=== PATIENT | male | born 1990 ===

== ENCOUNTER 2016-12-21 19:33 | Emergency (ER) | payer BC ==
--- NOTE | 2016-12-21 21:58 | ED ORDER SUMMARY ---
..... Patient: JULIA DECKER OrderSheet [facility] VisitID: [id number] [place] [address] 26y, M Registration Date/Time: 12/21/2016 ORDER SHEET Weight: 86.1 kg (stated) Allergies: No Known Drug Allergy GENERAL ORDERS: Splint (Finger) (Left) (Small) (Aluminum Foam) (21:53 12/21/2016 HBivens A.R.N.P.) (Ack 21:53 CHernandez R.N.) (22:56 DDean R.N.) Suture Set-up: (21:53 12/21/2016 HBivens A.R.N.P.) (Ack 21:53 CHernandez R.N.) (22:56 DDean R.N.) Dress Wounds (21:53 12/21/2016 HBivens A.R.N.P.) (Ack 21:53 CHernandez R.N.) (22:56 DDean R.N.) MEDICATION ORDERS: Lidocaine Injection 1% plain (NOW) (21:52 12/21/2016 HBivens A.R.N.P.) (Ack 21:53 CHernandez R.N.) (22:58 DDean R.N.) Bupivacaine Injection 0.5 % (soln) (NOW) (21:52 12/21/2016 HBivens A.R.N.P.) (Ack 21:53 CHernandez R.N.) (22:58 DDean R.N.) IV FLUIDS: ORDER SHEET NOTES: [Electronically signed by Tiffanie German.R.N.P. (22:30 12/21/2016)] [Electronically signed by Ami Watters R.N. (22:59 12/21/2016)] [Electronically locked/signed by Ami Watters R.N. (22:59 12/21/2016)]
--- NOTE | 2016-12-21 21:58 | ED ORDER SUMMARY ---
..... Patient: JULIA DECKER OrderSheet [facility] VisitID: [id number] [place] [address] 26y, M Registration Date/Time: 12/21/2016 ORDER SHEET Weight: 86.1 kg (stated) Allergies: No Known Drug Allergy GENERAL ORDERS: Splint (Finger) (Left) (Small) (Aluminum Foam) (21:53 12/21/2016 HBivens A.R.N.P.) (Ack 21:53 CHernandez R.N.) (22:56 DDean R.N.) Suture Set-up: (21:53 12/21/2016 HBivens A.R.N.P.) (Ack 21:53 CHernandez R.N.) (22:56 DDean R.N.) Dress Wounds (21:53 12/21/2016 HBivens A.R.N.P.) (Ack 21:53 CHernandez R.N.) (22:56 DDean R.N.) MEDICATION ORDERS: Lidocaine Injection 1% plain (NOW) (21:52 12/21/2016 HBivens A.R.N.P.) (Ack 21:53 CHernandez R.N.) (22:58 DDean R.N.) Bupivacaine Injection 0.5 % (soln) (NOW) (21:52 12/21/2016 HBivens A.R.N.P.) (Ack 21:53 CHernandez R.N.) (22:58 DDean R.N.) IV FLUIDS: ORDER SHEET NOTES: [Electronically signed by Tiffanie German.R.N.P. (22:30 12/21/2016)] [Electronically signed by Ami Watters R.N. (22:59 12/21/2016)] [Electronically locked/signed by Ami Watters R.N. (22:59 12/21/2016)]
--- NOTE | 2016-12-21 21:58 | ED NURSING NOTES ---
Clinical Report - Nurses [facility] [place] [address] 12/21/2016 19:36 Patient: JULIA DECKER TRIAGE Triage time 20:28. Acuity: LEVEL 4. Chief Complaint: Location of symptoms- left 5th finger (laceration). --20:33 Hussein Matta R.N. 20:28 12/21/16. BP: 129/82. HR: 102. RR: 16. O2 saturation: 100%. Temp: 98.8 F. Pain level now: 10/10. --20:33 Hussein Matta R.N. Weight: 86.1 kg stated. Height/Length: 69 inches Per Patient. BMI: 28.1. --20:32 Hussein Matta R.N. Medications None. --20:30 Hussein Matta R.N. Medication/allergy information source: the patient. --20:33 Hussein Matta R.N. Allergies No Known Drug Allergy. --20:30 Hussein Matta R.N. History Arrived by private vehicle. Historian: patient. Accompanied by family. ( Was cutting a plastic material with a knife when it slipped and cut his left 5th digit, controlled bleeding.). Injury occurred. This occurred just prior to arrival. Treatment CUSTOMER ENGAGEMENT MANAGER: Performed wound care. PAST MEDICAL HX: Tetanus status: up-to-date. SOCIAL HX: Current some days light tobacco smoker (cigarette)- less than 1/2 a pack per day. Alcohol use; consumes beer occasionally. History of drug use: marijuana. (1 months ago). --20:33 Hussein Matta R.N. PROBLEMS: Laceration. Head Injury. Contusion. Tetanus Status. --20:31 Hussein Matta R.N. Interventions ID band on patient. To room. --20:33 Hussein Matta R.N. PHYSICAL ASSESSMENT Ambulatory to room. GENERAL / NEURO / PSYCH: Oriented X 4. Alert. Appears in no acute distress. EXTREMITIES: Extremities exhibit normal ROM. Neuro-vascular status intact to the extremity. No upper extremity edema. Left little finger: subcutaneous laceration with controlled bleeding. Limited movement secondary to pain. SKIN: Skin intact. Skin is warm and dry. --20:34 Hussein Matta R.N. NURSING PROGRESS NOTES Neuro-vascular extremity check. Patient identifiers checked. Call light placed in reach. Side rails up x 1. Bed placed in lowest position. Brakes of bed on. Patient ready for evaluation- ED physician and WATER POLLUTION SCIENTIST notified. --20:34 Hussein Matta R.N. Reassessment after wound repair. He is calm. Overall patient status is improved- he states feels better. GENERAL / NEURO / PSYCH: Alert. Oriented X 4. RESPIRATORY: No respiratory distress. CVS: Capillary refill less than 2 seconds. EXTREMITIES: Neuro-vascular status intact to the extremity. SKIN: Skin is warm and dry. --21:51 Hussein Matta R.N. Applied dressing, following the application of antibiotic ointment (bacitracin). Secured with tube gauze (2215). Aluminum-foam finger splint applied to left little finger (2220). --22:24 Armida Live 22:10. WOUND REPAIR: Wound repair performed by BELA. Assisted by [employer] tech. The wound is located on the left little finger. The wound is linear. Preparation: suture tray set-up with 1% lidocaine. Wound cleansed per WATER POLLUTION SCIENTIST with sterile saline and irrigated per WATER POLLUTION SCIENTIST with sterile saline using a syringe. Procedure: wound repaired with sutures (1 suture packet used). Post-procedure: he was stable, bleeding controlled, neuro-vascular status intact distal to wound and dressing applied. Total time of assist / procedure: 15 minutes. --22:54 Ami Watters R.N. 21:50 12/21/2016 lidocaine * Subcutaneous 1% to ERNP for suture repair --22:58 Ami Watters R.N. 21:50 12/21/2016 Bupivacaine Injection Injectable 0.5 % given. (to EDNP for suture repair). --22:58 Aim Watters R.N. DISPOSITION / DISCHARGE 22:05. Condition at departure: stable. No learning barriers present. Discharge instructions provided and reviewed with the patient. Reviewed referral to an orthopedic surgeon. Patient verbalized understanding. Written instructions provided in Kazakh. The patient was discharged home and accompanied by newspaper reporter. He left the Emergency Department ambulatory and via private vehicle. Mine Supervisor driving. --22:56 Ami Watters R.N. 22:05 12/21/16. BP: 118/70. HR: 82. RR: 16. O2 saturation: 100%. Temp: deferred. Pain level now: 0/10. --22:56 Ami Watters R.N. Locked/Released at 12/21/2016 22:59 by Ami Watters R.N.
--- NOTE | 2016-12-21 21:58 | ED NURSING NOTES ---
Clinical Report - Nurses [facility] [place] [address] 12/21/2016 19:36 Patient: JULIA DECKER TRIAGE Triage time 20:28. Acuity: LEVEL 4. Chief Complaint: Location of symptoms- left 5th finger (laceration). --20:33 Hussein Matta R.N. 20:28 12/21/16. BP: 129/82. HR: 102. RR: 16. O2 saturation: 100%. Temp: 98.8 F. Pain level now: 10/10. --20:33 Hussein Matta R.N. Weight: 86.1 kg stated. Height/Length: 69 inches Per Patient. BMI: 28.1. --20:32 Hussein Matta R.N. Medications None. --20:30 Hussein Matta R.N. Medication/allergy information source: the patient. --20:33 Hussein Matta R.N. Allergies No Known Drug Allergy. --20:30 Hussein Matta R.N. History Arrived by private vehicle. Historian: patient. Accompanied by family. ( Was cutting a plastic material with a knife when it slipped and cut his left 5th digit, controlled bleeding.). Injury occurred. This occurred just prior to arrival. Treatment NUCLEAR SUPERVISING OPERATOR: Performed wound care. PAST MEDICAL HX: Tetanus status: up-to-date. SOCIAL HX: Current some days light tobacco smoker (cigarette)- less than 1/2 a pack per day. Alcohol use; consumes beer occasionally. History of drug use: marijuana. (1 months ago). --20:33 Hussein Matta R.N. PROBLEMS: Laceration. Head Injury. Contusion. Tetanus Status. --20:31 Hussein Matta R.N. Interventions ID band on patient. To room. --20:33 Hussein Matta R.N. PHYSICAL ASSESSMENT Ambulatory to room. GENERAL / NEURO / PSYCH: Oriented X 4. Alert. Appears in no acute distress. EXTREMITIES: Extremities exhibit normal ROM. Neuro-vascular status intact to the extremity. No upper extremity edema. Left little finger: subcutaneous laceration with controlled bleeding. Limited movement secondary to pain. SKIN: Skin intact. Skin is warm and dry. --20:34 Hussein Matta R.N. NURSING PROGRESS NOTES Neuro-vascular extremity check. Patient identifiers checked. Call light placed in reach. Side rails up x 1. Bed placed in lowest position. Brakes of bed on. Patient ready for evaluation- ED physician and AUTOMOTIVE FINANCE MANAGER notified. --20:34 Hussein Matta R.N. Reassessment after wound repair. He is calm. Overall patient status is improved- he states feels better. GENERAL / NEURO / PSYCH: Alert. Oriented X 4. RESPIRATORY: No respiratory distress. CVS: Capillary refill less than 2 seconds. EXTREMITIES: Neuro-vascular status intact to the extremity. SKIN: Skin is warm and dry. --21:51 Hussein Matta R.N. Applied dressing, following the application of antibiotic ointment (bacitracin). Secured with tube gauze (2215). Aluminum-foam finger splint applied to left little finger (2220). --22:24 Armida Live 22:10. WOUND REPAIR: Wound repair performed by BELA. Assisted by [employer] tech. The wound is located on the left little finger. The wound is linear. Preparation: suture tray set-up with 1% lidocaine. Wound cleansed per AUTOMOTIVE FINANCE MANAGER with sterile saline and irrigated per AUTOMOTIVE FINANCE MANAGER with sterile saline using a syringe. Procedure: wound repaired with sutures (1 suture packet used). Post-procedure: he was stable, bleeding controlled, neuro-vascular status intact distal to wound and dressing applied. Total time of assist / procedure: 15 minutes. --22:54 Ami Watters R.N. 21:50 12/21/2016 lidocaine * Subcutaneous 1% to ERNP for suture repair --22:58 Ami Watters R.N. 21:50 12/21/2016 Bupivacaine Injection Injectable 0.5 % given. (to EDNP for suture repair). --22:58 Ami Watters R.N. DISPOSITION / DISCHARGE 22:05. Condition at departure: stable. No learning barriers present. Discharge instructions provided and reviewed with the patient. Reviewed referral to an orthopedic surgeon. Patient verbalized understanding. Written instructions provided in Kiswahili. The patient was discharged home and accompanied by participant administrator. He left the Emergency Department ambulatory and via private vehicle. Visual Lead driving. --22:56 Ami Watters R.N. 22:05 12/21/16. BP: 118/70. HR: 82. RR: 16. O2 saturation: 100%. Temp: deferred. Pain level now: 0/10. --22:56 Ami Watters R.N. Locked/Released at 12/21/2016 22:59 by Ami Watters R.N.
--- NOTE | 2016-12-21 21:58 | ED CLINICAL REPORT ---
Clinical Report - Physicians/Mid Levels [facility] [address] [place] [address] 12/21/2016 19:36 Patient: JULIA DECKER Time Seen: 0; initial patient contact, initial documentation, patient care assumed. Arrived- By private vehicle. Historian- patient. HISTORY OF PRESENT ILLNESS Chief Complaint: Injury to the left 5th (little) finger. The injury happened just prior to arrival. The patient sustained a laceration from a knife. Occurred at home. Patient is experiencing severe pain. Patient denies injury to the head or neck. No other injury. REVIEW OF SYSTEMS The patient sustained a laceration. No swelling, tingling, numbness, weakness or foreign body. All systems otherwise negative, except as recorded above. PAST HISTORY See nurses notes. PROBLEMS: Laceration. Head Injury. Contusion. Tetanus Status. --20:31 Hussein Matta RDoc. The patient's dominant hand is the right. Tetanus immunization status is up-to-date. SOCIAL HISTORY Light tobacco smoker. Occasional alcohol use. History of occasional drug use: marijuana. No recent travel. Is a local resident. FAMILY HISTORY No significant family medical history. ADDITIONAL NOTES The nursing notes have been reviewed with agreement regarding the chief complaint, HPI, ROS, PMH and patient medications and allergies. PHYSICAL EXAM Vital Signs: 12/21/2016 20:28 BP: 129/82. HR: 102. RR: 16. O2 saturation: 100%. Temp: 98.8 F. Pain level now: 5/10. Have been reviewed as abnormal and appear to be correct. Blood pressure normal. Tachycardic. Respiratory rate normal. Temperature normal. Oxygen saturation normal. Appearance: Alert. Oriented X3. Anxious. No acute distress. Head: Head atraumatic. Eyes: Pupils equal, round and reactive to light. Eyes normal inspection. Respiratory: No respiratory distress. Skin: Skin warm and dry. Skin intact. Extremities: Hand injury present. Left little finger: severe tenderness and subcutaneous 2.0 cm laceration of the volar aspect, PIP joint and middle phalanx- SEE LACERATION PROCEDURE NOTE #1; limited movement (diminished flexion). Neurovascular intact distally. (pt unable to flex finger). No erythema, swelling, abrasion, ecchymosis or puncture wound. No foreign body or deformity. No subungual hematoma or amputation present. No wrist injury. Hand and wrist exam otherwise negative. Extremities otherwise negative. Neuro, Vascular and Tendons: Vascular status intact. No pulse deficit present. Capillary refill not prolonged. Sensation intact. Motor deficit present. Tendon deficit present. Possible functional tendon deficit to flexor tendon left little finger. No tendon injury seen. No sensory deficit or weakness. Neuro: Oriented X 3. No motor deficit. No sensory deficit. Note: isolated injury to finger. PROGRESS AND PROCEDURES Laceration Repair: Location: left little finger. Length: 2 cm. Complexity: simple (local anesthesia used and sutured). Wound depth/shape- subcutaneous, linear and irregular and involving fascia. Wound is clean. No contamination, foreign body or contused tissue present. No tissue loss. Neuro/vascular/tendon status: motor deficit present distally. Tendon injury present. (? flexor tendon injury, unable to flex finger). No sensory deficit or vascular deficit distally. No ligament injury or tendon deficit or laceration. Tendon not examined. Anesthesia provided by digital block using 1% lidocaine and 0.50% Marcaine (5 mL). Prepped with Betadine. Wound explored, cleansed, irrigated and examined to the base in bloodless field with normal saline. No foreign material removed. Closure of skin: interrupted 3-0 nylon (4 sutures). Post-procedure: he is stable and there are no complications. Bleeding is controlled and neuro-vascular status is intact distal to the wound. Course of Care: concerns over possible flexor tendon injury voiced more than once, pt agreed to f/u with hand specialist. Patient counseled in person regarding the patient's stable condition and diagnosis. Differential Diagnosis: Other possible considerations: finger lac, tendon injury, fb, skin avulsion. Above considerations are based on history and physical exam. Differential diagnosis was discussed with patient. Disposition: Discharged home in good and improved condition (21:58). Condition: good and stable. CLINICAL IMPRESSION Single deep laceration to the left little finger.Treatment of laceration not delayed. No infection, foreign body present or left fingernail injury. INSTRUCTIONS Wear aluminum splint as needed. Protect wound and keep wound area clean. Change dressing twice daily. Soak in warm soapy water twice daily. Apply neosporin twice daily. Sutures should be removed in ten days. Warnings: GENERAL WARNINGS: Return or contact your physician immediately if your condition worsens or changes unexpectedly, if not improving as expected, or if other problems arise. Specifically return if problem worsens. Understanding of the discharge instructions verbalized by patient. Follow-up with: Sang Choudhary MD, Orthopedic Surgeon, , [address], , [place], [id number] Follow up Saturday even if well. Summary of care provided to patient. (Electronically signed by Tiffanie German A.R.N.P. 12/21/2016 22:30)
--- NOTE | 2016-12-21 22:59 | ED MAR SUMMARY ---
..... Medication Administration Record [facility] [address] [place] [address] Patient: JULIA DECKER Visit ID: [id number] 26y, M Weight: 86.1 kg Height/Length: 69 in BMI: 28.1 ALLERGIES: No Known Drug Allergy Given 21:50 12/21/2016 Ami Watters R.N. Medication Administered: lidocaine *, Dose: 1% * Subcutaneous. Medication Ordered: Lidocaine Injection 1% plain (NOW). Given 21:50 12/21/2016 Ami Watters RMoreN. Medication Administered: BUPIVACAINE [INJECTION], Dose: 0.5 % Injectable Injection. Medication Ordered: Bupivacaine Injection 0.5 % (soln) (NOW).
--- NOTE | 2016-12-21 22:59 | ED MAR SUMMARY ---
..... Medication Administration Record [facility] [address] [place] [address] Patient: JULIA DECKER Visit ID: [id number] 26y, M Weight: 86.1 kg Height/Length: 69 in BMI: 28.1 ALLERGIES: No Known Drug Allergy Given 21:50 12/21/2016 Ami Watters R.N. Medication Administered: lidocaine *, Dose: 1% * Subcutaneous. Medication Ordered: Lidocaine Injection 1% plain (NOW). Given 21:50 12/21/2016 Ami Watters RMoreN. Medication Administered: BUPIVACAINE [INJECTION], Dose: 0.5 % Injectable Injection. Medication Ordered: Bupivacaine Injection 0.5 % (soln) (NOW).
--- NOTE | 2016-12-21 22:59 | ED DISCHARGE INSTRUCTIONS ---
Patient: JULIA DECKER General Instructions [facility] VisitID: [id number] [place] [address] 26y, M Registration Date/Time: 12/21/2016 Single deep laceration to the left little finger.Treatment of laceration not delayed. No infection, foreign body present or left fingernail injury. INSTRUCTIONS Wear aluminum splint as needed. Protect wound and keep wound area clean. Change dressing twice daily. Soak in warm soapy water twice daily. Apply neosporin twice daily. Sutures should be removed in ten days. Warnings: GENERAL WARNINGS: Return or contact your physician immediately if your condition worsens or changes unexpectedly, if not improving as expected, or if other problems arise. Specifically return if problem worsens. Understanding of the discharge instructions verbalized by patient. Follow-up with: Sang Choudhary MD, Orthopedic Surgeon, , [address], , [place], [id number] Follow up Saturday even if well. Summary of care provided to patient. ADDITIONAL INFORMATION Laceration (All Closures) Alaceration is a cut through the skin. This will usually require stitches (sutures) or genia if it is deep. Minor cuts may be treated with a surgical tape closure orskin glue. Home care The following guidelines will help you care for your laceration at home: Extremity, face, or trunk wounds Keep the wound clean and dry. If a bandage was applied and it becomes wet or dirty, replace it. Otherwise, leave it in place for the first 24 hours. If stitches or genia were used, clean the wound daily. After removing the bandage, wash the area with soap and water. Use a wet cotton swab to loosen and remove any blood or crust that forms. The doctor may prescribe an antibiotic cream or ointment to prevent infection. Do not stop taking this medication until you have finished the prescribed course or the doctor tells you to stop. The doctor may also prescribe medications for pain. Follow the doctors instructions for taking these medications. You may remove the bandage to shower as usual after the first 24 hours, but do not soak the area in water (no swimming) until the stitches or genia are removed. If surgical tape was used, keep the area clean and dry. If it becomes wet, blot it dry with a towel. If skin glue was used, do not scratch, rub, or pick at the adhesive film. Do not place tape directly over the film. Do not apply liquid, ointment, or creams to the wound while the film is in place. Do not clean the wound with peroxide and do not apply ointments. Avoid activities that cause heavy sweating until the film has fallen off. Protect the wound from prolonged exposure to sunlight or tanning lamps. You may shower as usual but do not soak the wound in water (no baths or swimming). The film will fall off by itself in 510 days. Scalp wounds During the first two days, you may carefully rinse your hair in the shower to remove blood, glass or dirt particles. After two days, you may shower and shampoo your hair normally. Do not soak your scalp in the tub or go swimming until the stitches or genia have been removed. Talk with your doctor before applying any antibiotic ointment to the wound. Mouth wounds Eat soft foods to reduce pain. If the cut is inside of your mouth, clean by rinsing after each meal and at bedtime with a mixture of equal parts water and hydrogen peroxide (do not swallow!). Or, you can use a cotton swab to directly apply hydrogen peroxide onto the cut. Mouth wounds can be painful when eating. You may use an [id number] local numbing solution for pain relief. If this is not available, you may use any numbing solution for teething babies. You may apply this directly to the sores with a cotton-tip swab or with your finger. Follow-up care Follow up with your health care provider. Most skin wounds heal within ten days. Mouth and facial wounds heal within five days. However, even with proper treatment, a wound infection may sometimes occur. Therefore, you should check the wound daily for signs of infection listed below. Stitches should be removed from the face within five days; stitches and genia should be removed from other parts of the body within 714 days. If dissolving stitches were used in the mouth, these will fall out or dissolve without the need for removal. If tape closures were used, remove them yourself if they have not fallen off after 7 days. Ifskin glue was used, the film will fall off by itself in 510 days. When to seek medical care Get prompt medical attention if any of these occur: Bleeding not controlled by direct pressure Signs of infection, including increasing pain in the wound, increasing wound redness or swelling, or pus coming from the wound Fever of 100.4F (38C) or higher, or as directed by your health care provider Stitches or genia come apart or fall out or surgical tape falls off before 7 days Wound edges re-open You have been given the following additional information: Laceration, All (Electronically signed by Tiffanie German A.R.N.P. 12/21/2016 22:30)
--- NOTE | 2016-12-21 22:59 | ED MED RECONCILIATION SUMMARY ---
Patient: JULIA DECKER Medication Reconciliation Report [facility] VisitID: [id number] [address] [place] [address] 26y, M Registration Date/Time: 12/21/2016 Weight: 86.1 kg Height/Length: 69 in. BMI: 28.1 ALLERGIES: No Known Drug Allergy The patient's Home Medications are listed below: NONE. The source(s) of the original Home Medication information: patient The following Medications were given to the patient in the Emergency Department: lidocaine Subcutaneous 1%, administered: 12/21/2016 9:50:00 PM Bupivacaine [Injection] Injection 0.5 %, administered: 12/21/2016 9:50:00 PM The following Medications were prescribed to the patient: None.
--- NOTE | 2016-12-21 22:59 | ED MED RECONCILIATION SUMMARY ---
Patient: JULIA DECKER Medication Reconciliation Report [facility] VisitID: [id number] [address] [place] [address] 26y, M Registration Date/Time: 12/21/2016 Weight: 86.1 kg Height/Length: 69 in. BMI: 28.1 ALLERGIES: No Known Drug Allergy The patient's Home Medications are listed below: NONE. The source(s) of the original Home Medication information: patient The following Medications were given to the patient in the Emergency Department: lidocaine Subcutaneous 1%, administered: 12/21/2016 9:50:00 PM Bupivacaine [Injection] Injection 0.5 %, administered: 12/21/2016 9:50:00 PM The following Medications were prescribed to the patient: None.
== END 2016-12-21 22:05 | disposition home or self-care (01) ==
LOC: ED SRH 19:33
DX: S61.217A Laceration without foreign body of left little finger without damage to nail, initial encounter (principal); W26.0XXA Contact with knife, initial encounter; Y93.89 Activity, other specified; Y92.019 Unspecified place in single-family (private) house as the place of occurrence of the external cause; Y99.8 Other external cause status; F17.210 Nicotine dependence, cigarettes, uncomplicated